=== PATIENT | female | born 1960 | race Caucasian/White ===

== ENCOUNTER 2017-05-08 05:51 | Day surgery (SDC) | payer OTHER ==
[~2017-05-08] VITALS: Ht 160 cm; Wt 98.4 kg
[2017-05-08] VITALS (11 sets, daily range): BP systolic 87–125; BP diastolic 55–77; PULSE 54–68; RESP 10–20; O2SAT 91–100
[~2017-05-08 05:51] MED LIST: BENZ200C44 PO; CeFAZolin Inj 2 GM in IV Premix 1 EACH IV ONE; FLUO40CA PO; Lactated Ringer's 1,000 ML IV SCH; NAPR220C11 PO; Phenazopyridine 97.5 mg Tablet PO ONE; TRAZ-115 PO; omeprazole
[2017-05-08] MEDS ORDERED: fentaNYL-PF 50 mCg/mL 2 mL Inj ONE (05:52)
[2017-05-08] MEDS ORDERED: Glycopyrrolate 0.2 MG/ML 1mL Inj ONE (05:52)
[2017-05-08] MEDS ORDERED: Furosemide 10 mg/mL 4 mL Inj ONE (05:52)
[2017-05-08] MEDS ORDERED: HYDROmorphone 1 mg/mL Inj ONE (05:52)
[2017-05-08] MEDS ORDERED: Propofol 10,000 mCg/mL 20 mL Inj ONE (05:52)
[2017-05-08] MEDS ORDERED: Rocuronium 10 mg/mL 5 mL Inj ONE (05:52)
[2017-05-08] MEDS ORDERED: Dexamethasone 4 mg/mL Inj ONE (05:52)
[2017-05-08] MEDS ORDERED: Morphine PF 1 mg/mL 10 mL Inj ONE (05:52)
[2017-05-08] MEDS ORDERED: Ondansetron 2 mg/mL 2 mL Inj ONE (05:52)
[2017-05-08] MEDS ORDERED: EPHEDrine/NS 5 mg/mL 5 mL Syringe ONE (05:52)
[2017-05-08] MEDS ORDERED: Phenazopyridine 97.5 mg Tablet ONE (05:53)
[2017-05-08] MEDS ORDERED: ACET500C49 PO (06:04)
[2017-05-08] MEDS ORDERED: Lactated Ringer's 1,000 ML IV ONE ×2 (06:15→10:14)
[2017-05-08] MEDS ORDERED: CeFAZolin Inj 2 gm / 50mL D5W IV ONE (06:36)
[2017-05-08] MEDS ORDERED: Lidocaine 1%-Epi 1:100,000 20 mL Inj INJ ONE (08:41)
[2017-05-08] MEDS ORDERED: Sodium Chloride Bacteriostatic 30 mL Inj INJ ONE (08:44)
[2017-05-08] MEDS ORDERED: Gentamicin 40 mg/mL 2 mL Inj IRRIGATION ONE (08:45)
[2017-05-08] MEDS ORDERED: Lactated Ringer's 500 ML IV PRN (08:57)
[2017-05-08] MEDS ORDERED: Lactated Ringer's 1,000 ML IV SCH (08:57)
--- NOTE | 2017-05-08 08:57 | PCM.HPANE ---
Patient Data Surgeon Admitting Provider: Attending Provider:Timothy Jackson MD Primary Care Physician:Dwaine Other Provider:Jackelyn Reeder Anesthesia Reason for Visit Cystocele,Vault Prolapse,Stress Incontinence Ht/WT & BMI Height (Feet): 5 Height (Inches): 3.00 Weight (Kilograms): 97 Body Mass Index 37.00 Allergies Coded Allergies: Penicillins (Verified Allergy, Unknown, rash, 05/02/17) Past Anesthesia History Anesthesia History: Denies:: Anesthesia Reactions, Difficult Intubation, Fam Anesthesia Reaction Diabetes History Hx Diabetes?: No MRSA MRSA: No Medications Hypertension Medication: No Home Meds Incl Beta Jose Rafael: No Reported Medications Acetaminophen 500 Mg [id number] Mg PO DAILY 05/08/17 Naproxen Sodium (Aleve)220 Mg [id number] Mg PO PRN For Pain 05/02/17 [omeprazole] No Conflict Check20 Mg DAILY 05/02/17 Trazodone 50 Mg [id number] Mg PO HS Ref 0 05/02/17 Fluoxetine 40 Mg [id number] Mg PO DAILY Ref 0 05/02/17 Discontinued Reported Medications Benzonatate 200 Mg [id number] Mg PO TID PRN For Cough 05/02/17 Last Time Dose Received Off aleve x 7 dd History History of ENT Problems?: No HEENT History: Denies:: Cataracts Difficult Intubation Dysphagia Glaucoma Hearing Problem Sinus Problem TMJ Denture Type: Full- Upper Teeth Condition: Missing Teeth Hx of Heart Problems?: No Cardiovascular History: Denies:: AICD Abdominal Aortic Aneurism Atrial Fibrillation Chest Pain Congestive Heart Failure Coronary Artery Disease Edema Heart Murmur Hypertension Irregular Heartbeat Pacemaker Peripheral Vascular Rheumatic Fever Other History/Comments No CP; No hx [place] Hx of Respiratory Problem?: No Respiratory History: Denies:: Asthma COPD Emphysema Oxygen Administration Pneumonia Pulmonary Embolism Tuberculosis Use of C-PAP Machine Use of Inhalers / NEBS Hx Neurologic Problems?: No Neurological History: Denies:: CVA Dementia Dizziness Headaches Multiple Sclerosis Parkinson's Disease Seizures TIA Hx of GI Problems?: Yes Hx of Problems?: Yes Genitourinary History: Positive for:: Kidney Stones (hx of- still has left kidney stone present) Urinary Tract Infection (recurrent, not current ) Female Hx: Denies:: Currently (hysterectomy) Problems with Breasts? Skin History: Denies:: History Skin Disorders? Pressure Ulcers Hx Musculoskeletal Problems?: No Musculoskeletal History: Denies:: Back Injury Degenerative Joint Fibromyalgia Joint Replacement Musculoskeletal Trauma Myasthenia Gravis Osteoarthritis Rheumatoid Arthritis Hx of Psycho/Social Problems?: Yes Psycho Social History: Positive for:: Hx Depression Hx Surgeries?: Yes (hiatal hernia repair, tubal, LAVH, left thyroid) Hx Any Other Health Problems?: Yes Other History: Positive for:: Thyroid Disease (nodule- benign ) Denies:: Cancer History Blood Transfusions: Positive for:: Accept Blood Products? Denies:: Blood Transfusions Hx Diabetes: No Hx Alcohol Use: NoHx Substance Use: No Stop/Bang P-Blood Pressure: treated: No B- Body Mass Index > 35 kg/m2: Yes A- Age over 50: Yes N- Neck Large Circumference: No G- Gender Male: No Risk Assessment Category Category 1A: Patient has history of documented sleep apnea, and HAS NOT received any narcotic, sedative or anesthesia administration during this stay. Category 1B: Patient has history of documented sleep apnea, and HAS received any narcotic , sedative or anesthesia administration during this stay Category 2: Patient has SUSPECTED Obstructive Sleep Apnea, and HAS received any narcotic , sedative or anesthesia administration during this stay. Category 3: Patient has SUSPECTED Obstructive Sleep Apnea and HAS NOT received narcotic, sedative or anesthesia administration during this stay. Category 4: Outpatient in Procedural Areas with known sleep apnea or who screen positive for High Risk via the STOP/BANG questionnaire. Exam Exam Vital Signs Vital Signs Date Time Temp Pulse Resp B/P Pulse Ox O2 Delivery O2 Flow Rate FiO2 05/08/17 06:16 36.7 62 17 114/59 94 Room Air General Appearance: Alert, Oriented X3 HEENT/AIRWAY: MP 2, Neck Movement (FROM), Other (Upper denture) Lungs: Clear to Auscultation, Clear to Percussion Heart: Exam Unremarkable, Regular Rate/Rhythm Meds/Labs/Diagnostics Admission Meds Current Medications Phenazopyridine HCl 2 tab 2 tab STK-MED ONCE .ROUTE Last administered on 07:00; Start 05/08/17 at 05:53; Stop 05/08/17 at 05:54; Status DC Lactated Ringer's (Lr) 1,000 ml @ ud STK-MED ONCE IV Last administered on 05/08 06:15; Start 05/08/17 at 06:15; Stop 7/12/17 at 06:16; Status DC Plan Impression Patient chart reviewed, patient interviewed and anesthestic plan with risks, benefits, and alternatives discussed, and informed consent obtained. ASA Physical Status: ASA2 Mod Systemic Disease Anesthetic Plan: GA Bene/Risks/Altern/Consents: Yes HP Complete Prior to Induction: Yes Other Surgeon requests my offering intrathecal opiate to the patient for post-op pain control. R/b/a of intrathecal opiate injection for post-op pain control was discussed with the patient who consented to it. Alverto Cintron MD May 08, 2017 07:13
[2017-05-08] MEDS ORDERED: MetoCLOpramide 5 mg/mL 2 mL Inj IVPUSH PRN ×2 (09:00→11:10)
[2017-05-08] MEDS ORDERED: Ondansetron 2 mg/mL 2 mL Inj IVPUSH PRN ×2 (09:00→11:10)
[2017-05-08] MEDS ORDERED: Atropine 0.4 mg/mL Inj IVPUSH PRN (09:00)
[2017-05-08] MEDS ORDERED: HYDROmorphone 1 mg/mL Inj IVPUSH PRN (09:00)
[2017-05-08] MEDS ORDERED: EPHEDrine Sulfate 50 mg/mL Inj IVPUSH PRN (09:00)
[2017-05-08] MEDS ORDERED: Phenylephrine 10,000 mCg/mL Inj IVPUSH PRN (09:00)
[2017-05-08] MEDS ORDERED: Labetalol 5 mg/mL 4 mL Inj IV PRN (09:00)
[2017-05-08] MEDS ORDERED: Estrogens Conjugated 30 Gm Vaginal Cream VAGINAL ONE (10:36)
[2017-05-08] MEDS: fentaNYL-PF 50 mCg/mL 2 mL Inj IVPUSH PRN ×2 (11:06→11:16)
[2017-05-08] MEDS ORDERED: Acetaminophen IV 1,000 MG in IV Premix 1 EACH IV ONE (11:10)
[2017-05-08] MEDS ORDERED: diphenhydrAMINE 25 mg Capsule PO PRN (11:20)
--- NOTE | 2017-05-08 11:41 | PCM.SURGOP ---
Surgical Operative Report Date of Service: May 08, 2017 Pre Operative Diagnosis 1. POPQ stage 3 anterior vaginal prolapse 2. POPQ stage 2 posterior and apical vaginal prolapse 3 Urodynamic stress incontinence Post Operative Diagnosis 1. POPQ stage 3 cystocele, with deficient pubovesical/pubocervical fascia 2. POPQ stage 2 rectocele and vaginal vault prolapse/enterocele 3 Urodynamic stress incontinence Procedure: anterior repair with Xenform biologic graft augmentation. high uterosacral ligament vaginal vault suspension and enterocele repair, and TVT-obturator sling and cystoscopy Surgeon and Cable Driller: Surgeon: Timothy Jackson MD Assistants: Jelani Muñiz MD Indication for Procedure Her assessment to date includes: 1. Cystocele, midline N81.11 (618.01): 2. Rectocele N81.6 (618.04): 3. Prolapse of vaginal vault after hysterectomy N99.3 (618.5): 4. Recurrent Female stress incontinence N39.3 Previous records indicate that on 08/13/2002, Dr. Alverto Colón performed a laparoscopic-assisted vaginal hysterectomy, laparoscopic (distal) uterosacral ligament vaginal vault suspension, paravaginal repair, Jean Baptiste suspension and posterior repair. The patient is a candidate for surgical management in the form of anterior repair. and posterior repair with possible Xenform biologic graft augmentation. high uterosacral ligament vaginal vault suspension and enterocele repair, and TVT-obturator sling. The patient signed the consent form. She agreed with the risks, benefits, and alternatives to surgery. The risks included but not limited to recurrence or persistence of prolapse, recurrence of persistence of incontinence, development of voiding dysfunction, development of urinary urgency, urgency incontinence, frequency, and need for intermittent self-catheterization or prolonged indwelling catheterization, injury to other organs including bladder, bowel, nerves or blood vessels. Need for blood transfusion, need for temporary colostomy or urinary stenting. Development of vaginal scarring, dyspareunia, defecatory dysfunction, recurring pain, hematoma formation, urinary tract infection, cellulitis, necrotizing fascitis, and medical risks including myocardial infarction, stroke or VTE. She also understood the FDA warnings associated with the use of vaginal mesh (dysparunia, vaginal erosion, erosion into bowel/bladder/urethra, requiring further surgery to correct these complications). The patient understood the risks and benefits and consented to surgery. Findings: The stage 2 rectocele was completely reduced after suspension of the vault. Procedure Details SURGICAL TECHNIQUE: The patient was brought to the operating room and was placed under general anesthesia. She was prepped and draped in the normal fashion for vaginal surgery with the legs in Yellofin stirrups. Also, her hips were allowed to deflex periodically during the case to avoid any pressure on the nerves and lower limb joints. She was given a dose of IV Keflex. She received 200 mg oral pyridium 30 min prior to surgery. 1. Anterior colporrhaphy with Xenform graft augmentation: Lidocaine 0.5% with 1 /[id number] epinephrine was infiltrated along the anterior vaginal wall mucosa. A midline vertical incision was made through the anterior vaginal wall. The vaginal wall was dissected off the underlying pubocervical and pubovesical fascia. The dissection was extended laterally beyond the ischiopubic rami. It was noted that the pubocervical and pubovesical fascial tissues were deficient. During the dissection along the apex, which was noted to prolapse to the level of the hymen, an enterocele sac was entered with sharp dissection. This was aided with the use of a gloved finger in the rectum to avoid penetrating the rectal mucosa. The rest of the anterior repair would be completed later in the procedure. 2. High uterosacral ligament vaginal vault suspension, cystoscopy and enterocele repair: mini laparotomy sponges were packed to retract the bowel upwards. A pair of Allis clamps were placed along the intraperitoneal portions of the vagina at the 5 and 7 o'clock positions. Tension along these Allis clamps allowed for identification of the uterosacral ligaments bilaterally. Also the ureters were palpated carefully to identify them so they can be avoided. A pair of 0 Vicryl sutures were passed around the uterosacral ligaments of the level of the ischial spines bilaterally, totalling 4. Cystoscopy was performed while the vault sutures were placed under tension. Brisk spillage of pyridium-stained urine was noted at the ureteric orifices. Next, an enterocele was noted, which was obliterated using two 3-0 prolene suture in a transverse fashion along the posterior cul-de-sac. A gloved finger in the rectum was used to avoid penetrating the rectal mucosa. The remainder of the anterior repair was then completed as follows: The cystocele was plicated in 2 layers, the first layer with 2-0 Vicryl suture in interrupted fashion, the second layer with 2-0 Tycron suture in an interrupted fashion. A trapezoidal piece of Xenform graft was then incorporated atop the plicated area far laterally. The graft was secured far laterally into the obturator internus membrane. At the level of the bladder neck, an upside down triangular piece of graft was excised so that there was no excessive-support along the level of the bladder neck. Apically, the graft was passed through the proximal uterosacral ligament sutures. No amount of anterior vaginal mucosa was required to be excised. The high uterosacral ligament vault suspension sutures were passed through the planned apex of the vagina. The vagina was then reapproximated using 3-0 Vicryl suture in a running locked fashion. The high uterosacral ligament vaginal vault suspension sutures were tied and this elevated the apex of the vagina high up into the hollow of the sacrum. An EUA revealed that the St 2 rectocele was completely reduced after vault suspension. Therefore, the posterior repair did not need surgical repair at this time. 3. TVT-Obturator sling and cystoscopy. Lidocaine 0.5% with 1/427002 epinephrine was infiltrated along the anterior vaginal wall mucosa at the level of the mid urethra. Midline vertical incision was made at that level, 2 periurethral tunnels were created with Metzenbaum scissors. Two stab incisions were created at the skin at the groin at a level 2 cm superior to the external urethral meatus and 2 cm lateral to the fold created between the vulva and thigh. Recinos catheter had already been inserted.. A butterfly guide was inserted into the right periurethral tunnel, a curved helical needle was inserted on top of the guide and rotated out to the ipsilateral skin incision. The same procedure was performed on the contralateral side. Next the Recinos catheter was removed. Cystoscopy was performed. There was no inadvertent penetration of the sling to the vagina, urethra or bladder. In addition, the ureteric orifices were noted bilaterally and were noted to be functional by the brisk spillage of pyridium-stained urine. The bladder appeared normal. The plastic sheaths of the sling were removed. The bladder was filled with 300 mL of sterile water. Using the Crede maneuver, sling tension was appropriately adjusted. Also a large right angle clamp was allowed to easily pass behind the sling so that the sling was placed in a tension-free manner. The sling ends were cut at the level of the skin. The skin was reapproximated using Mastisol, Steri-Strips and band-aids. The vagina was reapproximated using 3-0 Vicryl suture in a running fashion. The estimated blood loss was approximately 150 mL. U/O was 90 ml. All sponges and instruments were accounted for. The patient was taken to the recovery room in stable condition. Complications There were no periprocedural complications identified. Surgical Specimen Removed: No Specimen sent to Pathology: No Anesthetic Plan: GA, Regional Block (Spinal duramorph) Grafts, Implants: Grafts-See Implant Record, Implants-See Implant Record Output, Estimated Blood Loss: 150 (ml) Blood Administration during cronin: No Drains: None Catheters: Urethral 2 Way Recinos Post Operative Plan overnight stay in bed as outpatient as she requires a voiding trial in the am copies to: Jelani Muñiz MD; Timothy Jackson MD, William Andre Z MD May 08, 2017 11:41
[2017-05-08] MEDS: 0.9% Sodium Chloride 1,000 ML IV SCH ×2 (11:53→20:23)
--- NOTE | 2017-05-08 12:06 | PCM.ANEP1 ---
Post Anesthesia PACU Phase 1 Assessment Vital Signs Vital Signs Date Time Temp Pulse Resp B/P Pulse Ox O2 Delivery O2 Flow Rate FiO2 05/08/17 11:22 68 15 112/61 96 Nasal Cannula 4 05/08/17 11:16 68 11 117/67 91 Room Air 05/08/17 11:11 12 99 05/08/17 11:11 63 10 117/75 100 Simple Mask 10 05/08/17 11:07 65 13 124/72 100 Simple Mask 10 05/08/17 11:00 62 11 101/77 100 Simple Mask 10 05/08/17 10:56 36.6 61 11 125/72 100 Simple Mask 10 05/08/17 06:16 36.7 62 17 114/59 94 Room Air Anesthetic Administered: GA, SAB Level of Alertness: Awake, talking CHOI's with Equal Strength: Yes Pain: No Pain Scale Score: 5 Nausea or Vomiting: No CV Function & Hydration Stable: Yes Airway Device: Oxygen Delivery: Simple Mask Lungs: Clear to Auscultation, Clear to Percussion Dermatome Level: Full Sensation PACU Phase 2 Assessment Complications: No Follow up Care: No Patient Instructions Provided: N/A Alverto Cintron MD May 08, 2017 12:06
--- NOTE | 2017-05-08 12:12 | NUR ---
Post Op Pt A&Ox3. CHOI. Able to transfer from stretcher to bed. States pelvic pain is 5/10. Morphine given for pain. Tolerating sips and ice chips. Denies any nausea. Recinos patent and draining to gravity. Bilateral labia bandaids C/D/I with vaginal packing in place. Pt bradycardic in high 50s. Sating 96% on 2L via NC. Kpad placed on abd. SCDs. Oriented to room and call light. Care continues.
[2017-05-08] MEDS: oxyCODONE-Acetamin 5-325 mg Tablet PO PRN ×2 (13:58→18:13)
--- NOTE | 2017-05-08 19:02 | NUR ---
Blood Pressure Blood pressure running low 87/50 with pulse of 55. Pt states that her blood pressure and pulse run low normally. Pt asymptomatic but states she is just feeling tired. No s/s of bleeding dressings C/D/I. notified. Ordered Stat H/H and will continue to monitor.
[2017-05-09 00:14] VITALS: BP 97/59; PULSE 54; RESP 18; O2SAT 96
[2017-05-09] MEDS: Alum-Mag Hydrox-Simeth 30 mL Suspension PO PRN ×2 (02:19→09:35)
[2017-05-09] MEDS: oxyCODONE-Acetamin 5-325 mg Tablet PO PRN ×4 (02:20→14:55)
--- NOTE | 2017-05-09 04:23 | NUR ---
Vitals/Pain HR maintaining in the mid to high 50s all shift so far. BP maintaining at 95/58 and 97/59 so far this shift. Patient remains asymptomatic. H&H drawn at beginning of shift & WNL. Rating surgical pain 5-04/06 this shift. Received two Percocet with effective results, resting with eyes closed upon reassessment. Complaints of acid reflux early this AM, Maalox given with effective results.
[2017-05-09 05:28] VITALS: BP 125/82; PULSE 51; RESP 18; O2SAT 97
[2017-05-09] MEDS: 0.9% Sodium Chloride 1,000 ML IV SCH ×2 (05:35→11:08)
[2017-05-09 06:25] LABS: BASOPHILS % (AUTO) 0.1 % (0-3); EOSINOPHILS % (AUTO) 0.5 % (0-5); MONOCYTES % (AUTO) 10.4 % (4-12); Mean Corpuscular Hemoglobin 29.6 pg (27.0-35.0); Mean Corpuscular Volume 92.8 fL (81-100); NEUTROPHILS % (AUTO) 68.6 % (40-74); Platelet Count 174 bil/L (150-400)
[2017-05-09] MEDS ORDERED: Pantoprazole 20 mg ER24 Tablet PO SCH (06:30)
[2017-05-09] MEDS ORDERED: Senna-Docusate 8.6-50 mg Tablet PO SCH (08:30)
[2017-05-09] MEDS ORDERED: Heparin 5,000 Unit/mL Inj SUBQ SCH (08:30)
[2017-05-09 09:42] VITALS: BP 99/63; PULSE 74; RESP 18; O2SAT 96
--- NOTE | 2017-05-09 11:29 | NUR ---
Void Trial Pt made aware of the steps of void trial; stated understanding. Vaginal packing removed; bilateral bandaids removed d/t saturation/falling off. Steri-strips remain in place. Performed void trial at 1100; pt only able to undergo instillation of 160cc sterile water before began to leak around catheter as well as stating discomfort. Carrero removed and pt up to BR immediately. Carrero out at 1130. Pt aware not to strain and aware of her 30minute window for void post carrero removal. Care continues.
--- NOTE | 2017-05-09 11:35 | NUR ---
Social Work- Multi-Disciplinary Rounds Pt is going to discharge today with or without catheter. No social work needs identified in rounds. Kim Jackson MSW
--- NOTE | 2017-05-09 12:25 | PCM.DIGYN ---
Surgical Discharge Instruction Dates of Hospitalization Date of Hospital Admission Providers Admitting Physician: Primary Care Physician: Nopcp Attending Physician: Timothy Jackson MD Diagnosis at Time of Discharge Post-operative diagnosis 1. POPQ stage 3 cystocele, with deficient pubovesical/pubocervical fascia 2. POPQ stage 2 rectocele and vaginal vault prolapse/enterocele 3 Urodynamic stress incontinence Problems: Diet Discharge Diet: No restrictions Activity Discharge Activity-General: Restrict lifting to no greater than (10 lb for 6 wk ) Dressing and Incisional Care Dressing Care: Allow Steri Stripes to fall off Hygiene: May shower Follow Up Plan Follow-up appointment: Weeks (2; if home with carrero, also f/u in [address] Jackson's MA) Call your provider for: Fever, Chills, Shortness of breath, Vomitting, Drainage at incision, Heavy vaginal bleeding, Wound redness, Increasing pain Timothy Jackson MD May 09, 2017 12:25
[2017-05-09 14:31] VITALS: BP 108/73; PULSE 50; RESP 20; O2SAT 99
--- NOTE | 2017-05-09 17:45 | NUR ---
Discharge Pt discharged to home with self; awaiting for personal ride d/t taking narcotics. Aware of the need to quit smoking. Wanting to wait in her car for her ride. A&Ox3, CHOI, No IV access, Hard copy scripts with pt, All personal belongings in hand, CareNotes provided on dc dx, new medications and carrero care with instructions provided on cleaning carrero catheter. Pt disconnected from carrero bag and plug placed into tubing. No questions/concerns unanswered. Pt getting dressed and wanting to walk off of unit. Addendum: 05/09/17 at 1747 by JUAN FULLER RN Carrero was replaced at 1445. Addendum: 05/09/17 at 1811 by JUAN FULLER RN Pt walked off of unit to vehicle with staff at side at 1800.
--- NOTE | 2017-05-09 22:39 | PCM.PNSURG ---
Subjective Date of Service: May 09, 2017 Date of Service: May 09, 2017 Visit Information: Reason for Visit Cystocele,Vault Prolapse,Stress Incontinence Surgery/Surgery Date Post-Op Day # 1 Subjective: Late entry (Dr. Jackson saw patient at 925 am) Doing well ambulatory OR explained tolerating diet voided 180 of 200 ml instilled; however PVR with scan was elevated and carrero was reinserted hct stable, not anemic Postop General: No Complaints Gastrointestinal: Good Appetite Pain Management: PO Postop Activity: Ambulating Independently Objective Intake and Output- Last 8 Hour 05/09/17 Cumulative From/Thru 07:00 05/02/17 14:34 - 05/09/17 06:57 Intake Total 1901 ml 5488 ml Output Total 450 ml 1340 ml Balance 1451 ml 4148 ml Intake Oral 800 ml 2020 ml IV Total 1101 ml 3468 ml Output Urine Total 450 ml 1040 ml Estimated Blood Loss 300 ml General: Alert, Oriented X3, Cooperative Lungs: Clear to Auscultation Abdomen: Benign Catheters: Urethral [address] Way Carrero Result Diagram: 05/09/17 0555 Assessment & Plan Impression stable for discharge Problems: Plan f/u in [address] Jackson's MA for voiding trial f/u in [address] Jackson copies to: Timothy Jackson MD, William Andre Z MD May 09, 2017 22:39
== END 2017-05-09 17:55 | disposition home or self-care (01) ==
LOC: SAS 05:51 → OSC 11:45 → SAS 05-09 17:55
PROVIDERS: ATTEND Obstetrics & Gynecology
DX: N81.11 Cystocele, midline (principal); N81.6 Rectocele; N39.3 Stress incontinence (female) (male); F32.9 Major depressive disorder, single episode, unspecified; E07.9 Disorder of thyroid, unspecified
CPT/HCPCS: 36415; 57260; 57283; 57288; 85014; 85018; 85025; C1763; C1771; J0690; J1100; J1170; J1580; J1644; J1885; J1940; J2250; J2270; J2274; J2405; J3010; J7030; J7120